=== PATIENT | male | born 1955 | race African-American/Black ===

== ENCOUNTER 2017-04-17 20:43 | Emergency (ER) | payer OTHER ==
[~2017-04-17] VITALS: Ht 170.2 cm; Wt 84.1 kg
[~2017-04-17 20:43] MED LIST: AMLODIPINE PO; LISINOPRIL PO
[2017-04-17] MEDS ORDERED: GABA-531 PO (20:49)
[2017-04-17] MEDS ORDERED: AMLO-512 PO (20:49)
[2017-04-17] MEDS ORDERED: LISI-661 PO (20:49)
[2017-04-17 21:03] VITALS: BP 131/72
[2017-04-17] MEDS ORDERED: ACETAMINOPHEN 325 MG TABLET PO ONE (21:15)
== END 2017-04-17 21:37 | disposition home or self-care (01) ==
LOC: EMS 20:45 → EDBD 20:45 → EMS 21:37
DX: S13.4XXA Sprain of ligaments of cervical spine, initial encounter (principal); M62.838 Other muscle spasm; I10 Essential (primary) hypertension; F17.210 Nicotine dependence, cigarettes, uncomplicated; X58.XXXA Exposure to other specified factors, initial encounter; Y93.89 Activity, other specified; Y92.89 Other specified places as the place of occurrence of the external cause; Y99.8 Other external cause status
CPT/HCPCS: 93005; 99283